=== PATIENT | female | born 1965 | race Caucasian/White ===

== ENCOUNTER → 2017-06-30 | Outpatient (CLI) | payer OTHER ==
[2017-06-30 13:10] LABS: HEMOGLOBIN A1C 6.6 % (4.5-5.6)
[2017-06-30 13:26] LABS: CREATININE RANDOM URINE 74.8 mg/dl
[2017-06-30 16:19] LABS: BLOOD UREA NITROGEN 15 mg/dl (7-18); CALCIUM 9.3 mg/dl (8.5-10.1); CARBON DIOXIDE 26 mmol/L (21-32); CREATININE 0.79 mg/dl (0.60-1.20); GLUCOSE 126 mg/dl (70-99); POTASSIUM 4.1 mmol/L (3.5-5.1); SODIUM 138 mmol/L (136-145)
== END | disposition home or self-care (01) ==
LOC: C.LABMFLN 09:31
PROVIDERS: ATTEND Family Medicine
DX: J45.909 Unspecified asthma, uncomplicated (principal); R73.03 Prediabetes